=== PATIENT | female | born 2000 | race Caucasian/White ===

== ENCOUNTER 2025-01-15 19:06 | Emergency (ER) | payer SELFPAY ==
[~2025-01-15] VITALS: Ht 162.6 cm; Wt 59.1 kg
[2025-01-15 19:07] VITALS: O2SAT 98
[2025-01-15 19:12] VITALS: BP 110/75; PULSE 93; RESP 14; TEMP 36.6; O2SAT 98
[2025-01-15 20:42] LABS: CLARITY URINE TURBID (CLEAR); COLOR URINE YELLOW (YELLOW); GLUCOSE URINE NEGATIVE (NEGATIVE); KETONES URINE NEGATIVE (NEGATIVE); LEUKOCYTE ESTERASE URINE NEGATIVE (NEGATIVE); NITRITE URINE NEGATIVE (NEGATIVE); OCCULT BLOOD URINE NEGATIVE (NEGATIVE); PH URINE 7.5 (4.5-8.0); PROTEIN URINE NEGATIVE (NEGATIVE); SPECIFIC GRAVITY URINE 1.019 (1.005-1.030)
[2025-01-15 20:52] LABS: BACTERIA URINE 2+; RBC URINE 0-2 /hpf (0-2); SQUAMOUS EPITHELIAL CELL URINE 1+ /lpf (RARE/1+); WBC URINE 0-2 /hpf (0-2)
[2025-01-15] MEDS ORDERED: DOXY100C5 MT (20:54)
[2025-01-15] MEDS: CEFTRIAXONE SODIUM 500MG VIAL IM ONE (21:04)
[2025-01-18 04:07] LABS: CHLAMYDIA TRACHOMATIS NAA Negative (Negative); NEISSERIA GONORRHOEAE NAA Negative (Negative)
== END 2025-01-15 21:09 | disposition home or self-care (01) ==
LOC: ER 19:06
DX: Z11.3 Encounter for screening for infections with a predominantly sexual mode of transmission (principal); J45.909 Unspecified asthma, uncomplicated; Z79.899 Other long term (current) drug therapy
CPT/HCPCS: 81003; 81025; 87491; 87591; 99283